=== PATIENT | female | born 1965 | race Caucasian/White ===

== ENCOUNTER 2017-12-20 20:27 | Emergency (ER) | payer SELFPAY ==
[2017-12-20 21:43] LABS: URINE BLOOD (Dip) POC 2+ (NEGATIVE); URINE GLUCOSE (Dip) POC Negative (NEGATIVE); URINE KETONES (Dip) POC Negative (NEGATIVE); URINE LEUKOCYTE EST (Dip) POC 1+ (NEGATIVE); URINE NITRITE (Dip) POC Negative (NEGATIVE); URINE TOTAL PROTEIN POC Negative (NEGATIVE)
[2017-12-20 21:43] LABS: URINE PH (Dip) POC 6.5 (5.0-8.5)
[2017-12-20] MEDS: CIPROFLOXACIN 250 MG TAB PO (22:22)
[2017-12-20] MEDS: ACETAMINOPHEN 325 MG TAB PO (22:22)
== END 2017-12-20 23:22 | disposition home or self-care (01) ==
LOC: FTE 20:27
DX: N39.0 Urinary tract infection, site not specified (principal)
CPT/HCPCS: 76856; 81003; 99284-25